=== PATIENT | female | born 1980 | race Caucasian/White ===

== ENCOUNTER 2024-01-01 17:54 | Outpatient (CLI) | payer BC, SELFPAY ==
--- NOTE | 2024-01-01 18:35 | XRR_ITS ---
PROCEDURE INFORMATION: Exam: XR Lumbosacral Spine Exam date and time: 01/01/2024 6:46 PM Age: 43 years old Clinical indication: Low back pain; Additional info: Vertebrogenic low pack pain TECHNIQUE: Imaging protocol: Radiologic exam of the lumbosacral spine. Views: 2 or 3 views. COMPARISON: No relevant prior studies available. FINDINGS: Bones/joints: There is normal alignment of the lumbar vertebral column on the neutral view. No subluxations are identified. No fractures are noted. There is minimal disc space narrowing at L4-L5 and L5-S1. There are degenerative changes involving the lower lumbar facets. No definite instability is noted on the flexion or extension view. Soft tissues: Unremarkable. XR/XR lumbar spine f/e only [id number] IMPRESSION: 1. Mild spondylosis.
--- NOTE | 2024-01-01 18:36 | XRR_ITS ---
PROCEDURE INFORMATION: Exam: XR Right Elbow Exam date and time: 01/01/2024 6:42 PM Age: 43 years old Clinical indication: Pain; Elbow; Right; Additional info: RT elbow pain TECHNIQUE: Imaging protocol: Radiologic exam of the right elbow. Views: 3 or more views. COMPARISON: No relevant prior studies available. FINDINGS: Bones/joints: Normal. Soft tissues: Normal. XR/XR elbow RT min 3V* [id number] IMPRESSION: No acute findings.
== END 2024-01-01 17:55 | disposition home or self-care (01) ==
PROVIDERS: Visit Provider Nurse Practitioner
DX: M51.360 Other intervertebral disc degeneration, lumbar region with discogenic back pain only (principal); M25.521 Pain in right elbow
CPT/HCPCS: 72120; 73080